=== PATIENT | male | born 1990 | race Caucasian/White ===

== ENCOUNTER 2022-10-21 12:41 | Outpatient (CLI) | payer OTHER, SELFPAY ==
[2022-10-21 14:07] VITALS: BP 120/77; PULSE 100
--- NOTE | 2022-10-21 14:24 | W.PM.STED ---
Stress Test Note Date Date Seen: 10/21/22 Date of test: 10/21/22 Providers Primary care provider: Kurtis Jacobo Stress test physician: Radha Pickett Stress Test Note Stress test ordered: Stress Echo Indication for test: Tachycardia Stress test medicine: None Results discussion: Resting EKG: Sinus rhythm, 70 beats per minute Resting blood pressure: 120/81 Stress test: Patient was exercised on the treadmill following standard Solomon protocol. Patient exercise for 14 minutes achieving 14 point Mets equivalent. He had a maximum heart rate of 179 beats per minute which was 112% of a calculated it target of 159. He had no symptoms during the stress test. He had a maximum blood pressure of 150/84 during exercise giving him a rate pressure product of 24,000 there was no arrhythmia, no ischemia during this stress test. Echo images to couple this for a for full formal diagnostic. Impression: Subjectively negative, objectively negative EKG portion of this exercise stress echo. Follow up suggested: Patient will await a call back from his ordering physician on the full formal report once the echo images have been read by Cardiology. Patient discharged home in stable condition.
== END 2022-10-21 12:42 | disposition home or self-care (01) ==
LOC: STRESS 12:41
PROVIDERS: PCP Family Medicine; Visit Provider Family Medicine
DX: R07.9 Chest pain, unspecified (principal); R06.09 Other forms of dyspnea; I34.0 Nonrheumatic mitral (valve) insufficiency
CPT/HCPCS: 93016; 93325; 93351

== ENCOUNTER 2023-11-03 17:01 | Emergency (ER) | payer OTHER, SELFPAY ==
[2023-11-03 17:07] VITALS: BP 160/93; PULSE 71; RESP 18; TEMP 36.4; O2SAT 98
--- NOTE | 2023-11-03 17:16 | CRLHL7_ITS ---
For Patients: As a result of the Century Cures Act, medical imaging exams and procedure reports are released immediately into your electronic medical record. You may view this report before your referring provider. If you have questions, please contact your health care provider. INDICATION: Trauma. TECHNIQUE: Left ankle radiographs, 3 views. COMPARISON: None. FINDINGS: Acute displaced, markedly comminuted fracture of the posterior body of the calcaneus. The ankle mortise joint space appears preserved. The talar dome appears intact. Mild associated soft tissue edema. No radiopaque foreign bodies. IMPRESSION: Acute displaced, markedly comminuted fracture of the calcaneus. Dictated by Kian Thacker MD @ 11/03/2023 6:14:38 PM (Electronically Signed)
--- NOTE | 2023-11-03 17:17 | ED_ITS ---
HPI - Extremity Injury (Lower) General Chief Complaint: Extremity Pain/Injury, Lower Stated Complaint: LT ankle injury Time Seen by Provider: 11/03/23 17:04 History of Present Illness HPI Narrative: This 32-year-old male comes in with an injury to his left lower extremity. He was up on a ladder in jump down from 3 or 4 ft up and landed on his feet. He felt a crack in his left foot and has not been able to ambulate on his leg since then. He does not report any other injury. Related Data Previous Rx's ?Medication ?Instructions ?Recorded hydrocodone 5 mg-acetaminophen 325 1 tab PO Q4-6H PRN pain #20 tabs 11/03/23 mg tablet Allergies Allergy/AdvReac Type Severity Reaction Status Date / Time No Known Drug Allergies Allergy Unverified 09/18/22 13:32 Review of Systems Status of ROS: Reports: 10 or more systems reviewed and unremarkable except as noted in History and below Narrative: Constitutional: No fevers, no weight gain or loss. Eyes: No discharge. No vision changes. HENT: No congestion, no sore throat, no ear pain. Cardiovascular: No chest pain, no palpitations. Respiratory: No shortness of breath, no wheezes, no cough. Gastrointestinal: No abdominal pain, no vomiting, no diarrhea. Genitourinary: No dysuria, no hematuria. Musculoskeletal: Left ankle/foot injury. Skin: No rashes, no pruritis. Neurological: No dizziness, weakness, sensory change, speech change. Endo/Heme/Allergies: No bruising or bleeding. No polydipsia. Pysch: no suicidality, no anxiety, no insomnia. All other systems reviewed and are negative. [facility] Social History Smoking Status: Never smoker How often do you have a drink containing alcohol: 2-3 times a week AUDIT-C Alcohol total score: 3 Non-prescribed substance use: denies use Little interest or pleasure in doing things: not at all Feeling down, depressed, or hopeless: not at all service: No Exam Narrative: Exam Narrative: Constitutional: Well-developed, well-nourished, no acute distress. HEENT: Normocephalic, atraumatic. Neck: Normal range of motion. Nontender. Supple. Heart: Intact distal pulses. Lungs: No chest discomfort. No wheezes, rhonchi, or rales. Abdomen: Nontender. Back: Normal range of motion. Extremities: Swelling in the left ankle and around the calcaneus. Skin: Intact. No rash. Warm. No erythema or pallor. Neurologic: No altered sensation. No weakness. Alert and oriented. Psychiatric: No suicidality. No anxiety or depression. No insomnia. Nursing notes and vitals signs are reviewed. Const: Vital Signs, click to edit/add: Vital Signs - 24 hr 11/03/23 17:07 11/03/23 18:51 Temperature 97.5 F L Pulse Rate [Pulse Oximeter] 71 77 Respiratory Rate 18 19 Blood Pressure [Le ft Upper Arm] 160/93 H 135/90 H Pulse Oximetry 98 96 Oxygen Delivery Me thod Room Air Room Air Course Vital Signs Vital signs: Initial Vital Signs Temperature 97.5 F L 11/03/23 17:07 Temperature Source Temporal Artery Scan 11/03/23 17:07 Pulse Rate 71 11/03/23 17:07 Pulse Rhythm Regular 11/03/23 17:07 Respiratory Rate 18 11/03/23 17:07 Blood Pressure 160/93 H 11/03/23 17:07 Blood Pressure Mean 115 H 11/03/23 17:07 Blood Pressure Position Sitting 11/03/23 17:07 Pulse Oximetry 98 11/03/23 17:07 Oxygen Delivery Method Room Air 11/03/23 17:07 Vital Signs Temperature 97.5 F L 11/03/23 17:07 Pulse Rate 71 11/03/23 17:07 Respiratory Rate 18 11/03/23 17:07 Blood Pressure 160/93 H 11/03/23 17:07 Pulse Oximetry 98 11/03/23 17:07 Oxygen Delivery Method Room Air 11/03/23 17:07 Temperature 97.5 F L 11/03/23 17:07 Pulse Rate 77 11/03/23 18:51 Respiratory Rate 19 11/03/23 18:51 Blood Pressure 135/90 H 11/03/23 18:51 Pulse Oximetry 96 11/03/23 18:51 Oxygen Delivery Method Room Air 11/03/23 18:51 Medications Administered Medications: Discontinued Medications Generic Name Dose Route Start Last Admin Trade Name Freq PRN Reason Stop Dose Admin Morphine Sulfate 10 mg 11/03/23 17:27 11/03/23 17:42 Morphine 10 Mg/Ml Inj IM 11/03/23 17:28 10 mg ONCE ONE Administration MDM - Extremity Injury (Lower) MDM Narrative Medical decision making narrative: This patient comes in with an injury to his left lower extremity. He had jumped from a ladder and heard a crack when he landed. On exam he did not have any tenderness when palpating over the medial or lateral malleolus of his left ankle. His swelling and pain is more located in the calcaneus region. X-ray images do show evidence of a calcaneal fracture. A CT scan is obtained for further guidance in managing this injury. I did speak with the orthopedic physician's resident care assistant regional commercial sales manager regarding this injury and he will be able to follow-up in clinic. A posterior splint was applied using Ortho Glass material. Patient also received a intramuscular injection of morphine. He was fitted for crutches and instructions were given to follow-up with orthopedic clinic. Imaging Data XR L Ankle: Radiologist's impression: FINDINGS: Acute displaced, markedly comminuted fracture of the posterior body of the calcaneus. The ankle mortise joint space appears preserved. The talar dome appears intact. Mild associated soft tissue edema. No radiopaque foreign bodies. IMPRESSION: Acute displaced, markedly comminuted fracture of the calcaneus. Discharge Plan Discharge Clinical Impression: Closed left calcaneal fracture Patient Disposition: Home w/ Parent or Adult Condition: Stable Additional Instructions: Wear splint and use crutches for ambulating. No weight-bearing on the left leg. Take medication as needed and directed for pain. Follow-up with orthopedic clinic. Call for appointment by dialing [phone]. Prescriptions: New hydrocodone-acetaminophen 5-325 mg tablet 1 tab PO Q4-6H PRN (Reason: pain) Qty: 20 0RF Follow Up/Referrals: Kurtis Jacobo MD [Primary Care Provider] - Stand Alone Forms: [employer] Info Instructions
--- NOTE | 2023-11-03 17:41 | CRLHL7_ITS ---
For Patients: As a result of the Century Cures Act, medical imaging exams and procedure reports are released immediately into your electronic medical record. You may view this report before your referring provider. If you have questions, please contact your health care provider. INDICATION: Fall with fracture COMPARISON: Same day left ankle radiographs TECHNIQUE: CT of the left calcaneus without intravenous contrast. FINDINGS: Acute extensively comminuted overall moderately displaced fracture extending throughout the calcaneus including the body, calcaneal tuberosity, anterior process, posterior subtalar joint, middle subtalar joint, anterior subtalar joint, and calcaneocuboid joint. The most pronounced area of articular surface step-off is at the posterior subtalar joint where the step-off measures up to 4 millimeters. There is a medium-sized lipohemarthrosis associated with the posterior subtalar joint. There is a tiny amount of posttraumatic soft tissue gas associated with the aforementioned fracture lines and also extending into the region of the sinus tarsi. Tiny well corticated ossification associated with the deep fibers of the deltoid ligament is likely due to old trauma and a tiny osseous excrescence associated with the region of the anterior tibiofibular ligament is also likely due to old trauma. Normal alignment of the tibiotalar joint. The peroneus longus tendon abuts the lateral aspect of the calcaneal body fracture line. There is a tiny posterior calcaneal enthesophyte. IMPRESSION: Extensively comminuted overall moderately displaced fracture of the calcaneus as described above. The peroneus longus tendon abuts a calcaneal fracture line and correlation should be made with physical exam to assess for entrapment. Please note that all CT scans at this facility use dose modulation, iterative reconstruction, and/or weight-based dosing when appropriate to reduce radiation dose to as low as reasonably achievable. Dictated by Roosevelt Brambila MD @ 11/03/2023 7:38:39 PM (Electronically Signed)
[2023-11-03] MEDS: MORPHINE 10 MG/ML inj IM (17:42)
[2023-11-03 18:51] VITALS: BP 135/90; PULSE 77; RESP 19; O2SAT 96
== END 2023-11-03 19:30 | disposition home or self-care (01) ==
PROVIDERS: Emergency Provider Emergency Medicine Emergency Medical Services; PCP Family Medicine
DX: S92.002A Unspecified fracture of left calcaneus, initial encounter for closed fracture (principal); Y93.39 Activity, other involving climbing, rappelling and jumping off
CPT/HCPCS: 73610; 73700; 96372; 99284; J2270

== ENCOUNTER 2023-11-22 11:00 | Emergency (ER) | payer OTHER, SELFPAY ==
[2023-11-22 11:11] VITALS: BP 122/87; PULSE 87; RESP 16; TEMP 36.7; O2SAT 96; BMI 28.0
--- NOTE | 2023-11-22 11:33 | CRLHL7_ITS ---
For Patients: As a result of the Century Cures Act, medical imaging exams and procedure reports are released immediately into your electronic medical record. You may view this report before your referring provider. If you have questions, please contact your health care provider. INDICATION: Calf pain status post surgery TECHNIQUE: A compression venous ultrasound exam was performed of the left lower extremity using murray-scale imaging, color Doppler and spectral Doppler analysis. FINDINGS: Sonographic imaging of the left lower extremity demonstrates normal compressibility and color Doppler venous blood flow within the common femoral vein, deep femoral vein, and the proximal greater saphenous vein. Within the thigh, the femoral vein is patent and compressible. At a lower level, the popliteal and posterior tibial veins also show normal compressibility and color Doppler venous blood flow. Limited imaging of the contralateral groin demonstrates a normal spectral waveform and color Doppler venous blood flow within the right common femoral vein. IMPRESSION: No evidence of deep vein thrombosis within the left lower extremity. Dictated by Marisol Coello MD @ 11/22/2023 1:44:23 PM (Electronically Signed)
--- NOTE | 2023-11-22 11:35 | ED.GENADULT ---
HPI - General Adult General Chief complaint: Post Op Complication Stated complaint: Swelling post surgical Time Seen by Provider: 11/22/23 11:23 History of Present Illness HPI narrative: This 32-year-old male had a surgical repair of a fractured calcaneus done about 12 days ago. He is currently in a splint and has a follow-up appointment for removal of suture in 2 days. He is reporting some pain under the splint and contacted [facility] who recommended that he come here to rule out a blood clot. Actually the pain is on the lateral aspect of his left leg about midway between the ankle and the calf. He has been taking a regular strength aspirin daily. He arrives here with normal vital signs. Related Data Home Medications ?Medication ?Instructions ?Recorded ?Confirmed acetaminophen 500 mg tablet mg PO 11/22/23 aspirin 325 mg tablet 325 mg PO DAILY 11/22/23 11/22/23 hydroxyzine HCl 25 mg tablet 25 mg PO 3XD PRN 11/22/23 11/22/23 ibuprofen 600 mg tablet 600 mg PO 3XD PRN 11/22/23 11/22/23 Previous Rx's ?Medication ?Instructions ?Recorded hydrocodone 5 mg-acetaminophen 325 1 tab PO Q4-6H PRN pain #20 tabs 11/03/23 mg tablet oxycodone 5 mg capsule 5 mg PO Q6H PRN pain #10 caps 11/22/23 Allergies Allergy/AdvReac Type Severity Reaction Status Date / Time No Known Drug Allergies Allergy Verified 11/22/23 11:09 Review of Systems Status of ROS: Reports: 10 or more systems reviewed and unremarkable except as noted in History and below Narrative: Constitutional: No fevers, no weight gain or loss. Eyes: No discharge. No vision changes. HENT: No congestion, no sore throat, no ear pain. Cardiovascular: No chest pain, no palpitations. Respiratory: No shortness of breath, no wheezes, no cough. Gastrointestinal: No abdominal pain, no vomiting, no diarrhea. Genitourinary: No dysuria, no hematuria. Musculoskeletal: Left calcaneus fracture status post surgical fixation. Skin: No rashes, no pruritis. Neurological: No dizziness, weakness, sensory change, speech change. Endo/Heme/Allergies: No bruising or bleeding. No polydipsia. Pysch: no suicidality, no anxiety, no insomnia. All other systems reviewed and are negative. PFSH PFS Social History Smoking Status: Never smoker How often do you have a drink containing alcohol: 2-3 times a week AUDIT-C Alcohol total score: 3 Non-prescribed substance use: denies use Little interest or pleasure in doing things: not at all Feeling down, depressed, or hopeless: not at all service: No Exam Narrative: Exam Narrative: Constitutional: Well-developed, well-nourished, no acute distress. HEENT: Normocephalic, atraumatic. Neck: Normal range of motion. Nontender. Supple. Heart: Regular. No murmurs. Normal rate. Intact distal pulses. Lungs: Clear to auscultation. No chest discomfort. No wheezes, rhonchi, or rales. Abdomen: Normal bowel sounds. Nontender. No rebound tenderness. Genitalia: Deferred. Back: No midline tenderness. Normal range of motion. Extremities: Left lower extremity is in a splint. The splint was removed and surgical wound appears to be healing properly without any sign of drainage or infection. No significant swelling of the left calf compared to the right leg. Skin: Intact. No rash. Warm. No erythema or pallor. Neurologic: No altered sensation. No weakness. Alert and oriented. Psychiatric: No suicidality. No anxiety or depression. No insomnia. Nursing notes and vitals signs are reviewed. Const: Vital Signs, click to edit/add: Vital Signs - 24 hr 11/22/23 11:11 Temperature 98.0 F Pulse Rate [Pulse Oximeter] 87 Respiratory Rate 16 Blood Pressure [Ri ght Upper Arm] 122/87 Pulse Oximetry 96 Course Vital Signs Vital signs: Initial Vital Signs Temperature 98.0 F 11/22/23 11:11 Temperature Source Temporal Artery Scan 11/22/23 11:11 Pulse Rate 87 11/22/23 11:11 Respiratory Rate 16 11/22/23 11:11 Blood Pressure 122/87 11/22/23 11:11 Blood Pressure Mean 98 11/22/23 11:11 Blood Pressure Position High-Fowlers 11/22/23 11:11 Pulse Oximetry 96 11/22/23 11:11 Vital Signs Temperature 98.0 F 11/22/23 11:11 Pulse Rate 87 11/22/23 11:11 Respiratory Rate 16 11/22/23 11:11 Blood Pressure 122/87 11/22/23 11:11 Pulse Oximetry 96 11/22/23 11:11 Temperature 98.0 F 11/22/23 11:11 Pulse Rate 87 11/22/23 11:11 Respiratory Rate 16 11/22/23 11:11 Blood Pressure 122/87 11/22/23 11:11 Pulse Oximetry 96 11/22/23 11:11 Medical Decision Making MDM Narrative Medical decision making narrative: This patient is status post open reduction internal fixation of a calcaneus fracture. He is scheduled to have his splint removed in 2 days but was noting some pain in his lateral left lower leg and [facility] instructed him to come in to have an ultrasound to rule out blood clot. An ultrasound was obtained and is negative for blood clot. The splint of course was removed for the ultrasound to occur. I replaced a Michael Yuen style splint using Ortho Glass material. The patient states that he is feeling better now that the original splint was removed. Perhaps the splint itself was causing some discomfort in this area. He is okay to be discharged home and will continue with nonweightbearing and follow up as scheduled. I did provide a prescription for some extra tablets of oxycodone that can be filled if needed. Discharge Plan Discharge Clinical Impression: Post-op pain Patient Disposition: Home, Self-Care Condition: Stable Additional Instructions: Continue current plans and follow up with MD as scheduled. Return if worsening. Prescriptions: New oxycodone 5 mg capsule 5 mg PO Q6H PRN (Reason: pain) Qty: 10 0RF No Action hydrocodone-acetaminophen 5-325 mg tablet 1 tab PO Q4-6H PRN (Reason: pain) Qty: 20 0RF aspirin 325 mg tablet 325 mg PO DAILY acetaminophen 500 mg tablet PO hydroxyzine HCl 25 mg tablet 25 mg PO 3XD PRN ibuprofen 600 mg tablet 600 mg PO 3XD PRN Follow Up/Referrals: Kurtis Jacobo MD [Primary Care Provider] - Stand Alone Forms: [email or web address] Info Instructions
[2023-11-22 13:20] VITALS: PULSE 77; O2SAT 95
== END 2023-11-22 13:29 | disposition home or self-care (01) ==
PROVIDERS: Emergency Provider Emergency Medicine Emergency Medical Services; PCP Family Medicine
DX: G89.18 Other acute postprocedural pain (principal)
CPT/HCPCS: 93971; 99284

== ENCOUNTER 2024-11-02 08:05 | Outpatient (CLI) | payer BC, SELFPAY ==
--- NOTE | 2024-11-02 08:15 | CRLHL7_ITS ---
For Patients: As a result of the Century Cures Act, medical imaging exams and procedure reports are released immediately into your electronic medical record. You may view this report before your referring provider. If you have questions, please contact your health care provider. INDICATION: 33 year-old male. Approximately 2 episodes of dysphagia with ingestion of solid food recently. TECHNIQUE: Single and double contrast esophagram. FINDINGS: Single-contrast esophagram is within normal limits. No stricture, mass, obstruction, esophageal dysmotility, hernia, or reflux. Double contrast esophagram demonstrates a normal appearing esophagus without evidence for esophagitis. No Zenker`s diverticulum. No hernia or reflux. Brief evaluation of the stomach and duodenum indicate that they are within normal limits. These findings were discussed briefly with the patient. 2 minutes 30 seconds fluoroscopy time utilized. IMPRESSION : Normal single and double contrast esophagram. Dictated by Laci Laguerre MD @ 11/02/2024 9:04:43 AM (Electronically Signed)
== END 2024-11-02 08:06 | disposition home or self-care (01) ==
LOC: RAD 08:05
PROVIDERS: PCP Nurse Practitioner Family; Visit Provider Internal Medicine
DX: R13.10 Dysphagia, unspecified (principal)
CPT/HCPCS: 74221